=== PATIENT | female | born 1975 | race Caucasian/White ===

== ENCOUNTER 2021-02-24 12:10 | Outpatient (CLI) | payer MEDICAID, SELFPAY ==
--- NOTE | 2021-02-24 13:06 | MM_ITS ---
WS: [id number] Exam: [place] [id number] Date/Time of Exam: 02/24/2021 1:11 PM Reason For Exam: SCREENING VIEWS: MLO and CC views both breasts. Comparison made with prior exam of 01/24/2019. Findings: There was no sign of mass, architectural distortion or suspicious calcification in either breast. Sc attered fibroglandular densities MM/[place] [id number] Impression: BI-RADS: 2-Benign FOLLOW-UP: 1 Year Follow-up This mammogram was also analyzed by the Computer [employer].
== END 2021-02-24 12:11 | disposition home or self-care (01) ==
LOC: RADSHAW 12:14
PROVIDERS: Family Provider Internal Medicine; PCP Internal Medicine; Visit Provider Internal Medicine
DX: Z12.31 Encounter for screening mammogram for malignant neoplasm of breast (principal)
CPT/HCPCS: 77067

== ENCOUNTER 2021-08-02 12:30 | Outpatient (CLI) | payer MEDICAID, SELFPAY ==
--- NOTE | 2021-08-02 12:35 | US_ITS ---
WS: [id number] TRANSVAGINAL PELVIC ULTRASOUND HISTORY: IRREGULAR PERIODS COMPARISON: 01/28/2013 Uterus: 9.6 cm x 5.2 cm x 4.8 cm. Mildly enlarged anteverted uterus. No fibroid or mass. Endometrium: 1.4 cm. Normal homogeneity throughout. No mass or increased vascularity. Right ovary: 3.9 cm x 3.0 cm x 2.4 cm. Ovary is slightly enlarged. Single complex follicle or collaps ing hemorrhagic cyst. Complex cyst measures 2.1 x 1.9 x 1.6 cm. Left ovary: Not visualized. No free fluid. US/US transvaginal [id number] IMPRESSION: 1. Normal endometrium. 2. Small hemorrhagic follicle or corpus luteal cyst RIGHT ovary.
== END 2021-08-02 12:31 | disposition home or self-care (01) ==
LOC: RAD 12:31
PROVIDERS: PCP Internal Medicine; Visit Provider Internal Medicine
DX: N92.6 Irregular menstruation, unspecified (principal)
CPT/HCPCS: 76830

== ENCOUNTER 2022-06-28 14:43 | Outpatient (CLI) | payer MEDICAID, SELFPAY ==
--- NOTE | 2022-06-28 14:53 | CT_ITS ---
WS: [id number] CT ABDOMEN AND PELVIS WITH CONTRAST HISTORY: RLQ ABDOMINAL PAIN/ LLQ PAIN/IRREGULAR PERIODS TECHNIQUE: Imaging performed of the abdomen and pelvis with IV contrast. Single phase imaging of the abdomen. Coronal and sagittal reformats are submitted. All CT scans at [facility] use at [address] one of these dose optimization techniques: automated exposure control; mA and/or kV adjustment per patient size (includes targeted exams where dose is matched to clinical indication); or iterative re construction. IV CONTRAST: Omnipaque 350; 100 mL IV. Oral contrast: Yes. DLP: 687.02 mGy.cm COMPARISON: None available. Lower thorax: Mild dependent changes at the lung bases. Heart is normal size. Small hiatal hernia. Liver/biliary system: Normal size with no intrahepatic dilatation. Gallbladder: Normal. No gallstones or wall thickening. No pericholecystic fluid. Pancreas: Normal size pancreas and pancreatic duct. No adjacent inflammation. Spleen: Normal size spleen. No mass or infarct. Adrenal glands: Normal. Right kidney: Normal. Left kidney: Normal. Aorta: Normal. Lymphadenopathy: None. Free fluid: None. GI tract: Normal stomach. No small bowel obstruction. Only mild fecal retention. The appendix is not definitely identified. There are a few scattered diverticula without acute diverticulitis. Abdominal wall: Fat containing umbilical hernia. Pelvis: No free fluid or adenopathy within the pelvis. Mildly enlarged RIGHT ovary. There is low-atte nuation mass associated with the ovary. This low-attenuation mass measures 2.3 x 2.1 cm. No associate d inflammation or fluid. The entire ovarian complex measures 3.2 x 3.7 x 2.7 cm. Bones: Unremarkable. CT/CT abdomen pelvis w con* [id number] IMPRESSION: 1. No acute abdomen or pelvic findings. 2. No GI tract obstruction. The appendix is not identified but no evidence for appendicitis. 3. Small low-attenuation mass associated with the RIGHT ovary measures 2.3 x 2 .1 cm. This mass has been described on prior pelvic ultrasounds and thought to be a cyst or paraovarian cyst. Same location as previously described cystic mas s. Hounsfield units are quite low but not diagnostic for a dermoid. Paraovarian and dermoid cyst within the differential also. 4. No free fluid or adenopathy.
[2022-06-28] MEDS: iohexol 350 mg/mL 500 mL Btl (per mL) PO (15:19)
[2022-06-28] MEDS: iohexol 350 mg/mL 500 mL Btl (per mL) IV (16:27)
== END 2022-06-28 14:44 | disposition home or self-care (01) ==
PROVIDERS: PCP Internal Medicine; Visit Provider Internal Medicine
DX: R10.31 Right lower quadrant pain (principal); R10.32 Left lower quadrant pain; N92.6 Irregular menstruation, unspecified; N83.9 Noninflammatory disorder of ovary, fallopian tube and broad ligament, unspecified
CPT/HCPCS: 74177; Q9967

== ENCOUNTER → 2022-07-22 15:00 | Outpatient (BNVA) | payer MEDICAID, SELFPAY | PROVIDERS: PCP Internal Medicine; Referring Provider Internal Medicine; Visit Provider Obstetrics & Gynecology | DX: Z01.419 Encounter for gynecological examination (general) (routine) without abnormal findings (principal) | CPT/HCPCS: 87624 ==

== ENCOUNTER → 2022-08-17 10:59 | Outpatient (BNVA) | payer MEDICAID, SELFPAY | PROVIDERS: PCP Internal Medicine; Visit Provider Obstetrics & Gynecology | DX: R10.2 Pelvic and perineal pain (principal); N83.291 Other ovarian cyst, right side | CPT/HCPCS: 76830 ==

== ENCOUNTER 2023-03-06 14:48 | Outpatient (CLI) | payer MEDICAID, SELFPAY ==
--- NOTE | 2023-03-06 15:01 | MM_ITS ---
WS: [id number] BILATERAL 3D TOMOSYNTHESIS DIGITAL SCREENING MAMMOGRAPHY WITH CAD CLINICAL INFORMATION: SCREENING HISTORY: Screening mammogram. No current complaints. COMPARISON: 2021 TECHNIQUE: Bilateral CC and MLO views. FINDINGS: Scattered fibroglandular densities bilaterally. No suspicious focal mass, asymmetry, calcifications, or architectural distortion. No evidence of malignancy. A few incidental punctate calcifications. Stable focal ovoid asymmetric density upper outer RIGHT breast. IMPRESSION: MM/[place] [id number] BI-RADS: 2-Benign FOLLOW UP: 1 Year Follow-up Recommend return to annual screening mammography.
== END 2023-03-06 14:49 | disposition home or self-care (01) ==
PROVIDERS: PCP Internal Medicine; Visit Provider Internal Medicine
DX: Z12.31 Encounter for screening mammogram for malignant neoplasm of breast (principal); R92.323 Mammographic fibroglandular density, bilateral breasts
CPT/HCPCS: 77063; 77067

== ENCOUNTER 2023-04-04 08:19 | Outpatient (CLI) | payer MEDICAID, SELFPAY ==
--- NOTE | 2023-04-04 08:23 | XRR_ITS ---
PROCEDURE INFORMATION: Exam: XR Thoracic Spine Exam date and time: 04/04/2023 8:35 AM Age: 47 years old Clinical indication: Pain in thoracic spine; Patient HX: Chronic back spasms/general pain, pain radiates down arms; Additional info: Degeneration of thoracic intervertebral disc TECHNIQUE: Imaging protocol: Radiologic exam of the thoracic spine. Views: 3 views. COMPARISON: CT abdomen pelvis w con* [id number] 06/28/2022 4:22 PM FINDINGS: Bones/joints: Multilevel up to very mild diffuse loss of thoracic spine disc heights, with associated very mild multilevel endplate hypertrophy. Vertebral body heights are intact. No fracture or listhesis. Normal spinal alignment. Soft tissues: Unremarkable. XR/XR thoracic spine 3V* [id number] IMPRESSION: No acute findings. Age-appropriate thoracic spondylosis as above.
== END 2023-04-04 08:20 | disposition home or self-care (01) ==
LOC: RAD 08:20
PROVIDERS: PCP Internal Medicine; Visit Provider Internal Medicine
DX: M51.34 Other intervertebral disc degeneration, thoracic region (principal); M47.814 Spondylosis without myelopathy or radiculopathy, thoracic region
CPT/HCPCS: 72072

== ENCOUNTER → 2023-07-21 11:18 | Outpatient (BNVA) | payer MEDICAID, SELFPAY | PROVIDERS: PCP Internal Medicine; Referring Provider Internal Medicine; Visit Provider Surgery | DX: K59.09 Other constipation | CPT/HCPCS: 99204 ==

== ENCOUNTER 2024-05-17 10:20 | Outpatient (CLI) | payer MEDICAID, SELFPAY ==
--- NOTE | 2024-05-17 10:28 | MM_ITS ---
WS: [id number] BILATERAL 3D TOMOSYNTHESIS DIGITAL SCREENING MAMMOGRAPHY WITH CAD CLINICAL INFORMATION: SCREENING HISTORY: Screening mammogram. No current complaints. COMPARISON: 2023 TECHNIQUE: Bilateral CC and MLO views. FINDINGS: Scattered fibroglandular densities bilaterally. No suspicious focal mass, asymmetry, calcifications, or architectural distortion. No evidence of malignancy. Stable asymmetric nodular density density upper-outer quadrant RIGHT breast unchanged since 2019 MM/MM scr tomosynthesis [id number] IMPRESSION: DENSITY: There are scattered areas of fibroglandular density. BI-RADS: 2 - Benign. FOLLOW UP: 1 Year Follow-up Recommend return to annual screening mammography.
== END 2024-05-17 10:21 | disposition home or self-care (01) ==
LOC: RAD 10:22
PROVIDERS: PCP Internal Medicine; Visit Provider Internal Medicine
DX: Z12.31 Encounter for screening mammogram for malignant neoplasm of breast (principal); R92.323 Mammographic fibroglandular density, bilateral breasts; N64.89 Other specified disorders of breast
CPT/HCPCS: 77063; 77067

== ENCOUNTER 2024-12-11 14:15 | Outpatient (CLI) | payer MEDICAID, SELFPAY ==
--- NOTE | 2024-12-11 14:21 | XR_ITS ---
WS: [id number] Right knee, 4 views, 12/11/2024 Clinical Data: PAIN IN R KNEE Comparison: Right knee, 11/08/2011 Findings: No fractures or dislocations are seen. There is irregularity of the articular surface of the lateral tibial plateau and the lateral femoral condyle. There are spurs of the medial and lateral femoral condyles. The right patella shows a posterior spur. The patella is intact. The soft tissues are unremarkable. XR/XR knee RT 4V [id number] Impression: Osteoarthritis of the right knee with irregularity of the articular articular s urfaces of the lateral joint space, spurs of the medial and lateral femoral con dyles and spurring of the right patella.
== END 2024-12-11 14:16 | disposition home or self-care (01) ==
LOC: RAD 14:17
PROVIDERS: PCP Internal Medicine; Visit Provider Internal Medicine
DX: M25.561 Pain in right knee (principal); M24.89 Other specific joint derangement of other specified joint, not elsewhere classified; M25.761 Osteophyte, right knee; M22.2X1 Patellofemoral disorders, right knee; M17.11 Unilateral primary osteoarthritis, right knee
CPT/HCPCS: 73564

== ENCOUNTER → 2025-01-21 14:50 | Outpatient (BNVA) | payer MEDICAID, SELFPAY | PROVIDERS: PCP Internal Medicine; Visit Provider Student in an Organized Health Care Education/Training Program | DX: M17.0 Bilateral primary osteoarthritis of knee (principal) | CPT/HCPCS: 73560; 73565; 99204 ==